=== PATIENT | female | born 1985 | race African-American/Black ===

== ENCOUNTER 2017-10-31 09:22 | Emergency (ER) | payer OTHER ==
[~2017-10-31] VITALS: Ht 162.6 cm; Wt 84.8 kg
[~2017-10-31 09:22] MED LIST: FLEXERIL PO; FLONASE 0.05%50 MCG NASAL
[2017-10-31 09:23] VITALS: BP 119/91
[2017-10-31] MEDS ORDERED: KEFLEX500 M1 PO (10:23)
== END 2017-10-31 10:33 | disposition home or self-care (01) ==
LOC: ER 09:22
DX: S61.412A Laceration without foreign body of left hand, initial encounter (principal); W26.8XXA Contact with other sharp object(s), not elsewhere classified, initial encounter; Y93.89 Activity, other specified; Y92.89 Other specified places as the place of occurrence of the external cause; Y99.8 Other external cause status